=== PATIENT | female | born 1990 | race Caucasian/White ===

== ENCOUNTER 2019-05-30 11:36 | Outpatient (CLI) | payer BC ==
[2019-05-30] VITALS (23 sets, daily range): BP systolic 113–149; BP diastolic 78–101
[2019-05-30] MEDS ORDERED: METO-467 PO (19:24)
== END 2019-05-30 23:59 | disposition home or self-care (01) ==
LOC: CARD DIAG 11:36
PROVIDERS: ATTEND Nurse Practitioner
DX: R00.0 Tachycardia, unspecified (principal)
CPT/HCPCS: 93660

== ENCOUNTER 2019-05-30 14:11 | Emergency (ER) | payer BC ==
[~2019-05-30] VITALS: Ht 170.2 cm; Wt 63.6 kg
[2019-05-30] MEDS ORDERED: normal saline 1000ML IV soln IVB ONE (16:20)
[2019-05-30 16:32] LABS: BASOPHILS # (AUTO) 0.1 X10'3 (0-0.2); BASOPHILS % (AUTO) 1.2 % (0-1); EOSINOPHILS % (AUTO) 0.8 % (0-6); HEMATOCRIT 42.1 % (35.0-45.0); HEMOGLOBIN 14.5 g/dl (12.0-16.0); LYMPHOCYTES # (AUTO) 1.6 X10'3 (1.1-4.8); LYMPHOCYTES % (AUTO) 36.3 % (21-51); MEAN CORPUSCULAR HEMOGLOBIN 29.5 PG (27.0-31.0); MEAN CORPUSCULAR HGB CONC 34.4 g/dL (33.0-36.5); MEAN PLATELET VOLUME 7.4 FL (7.4-10.4); MONOCYTES # (AUTO) 0.4 X10'3 (0-0.9); MONOCYTES % (AUTO) 8.9 % (2-12); NEUTROPHILS # (AUTO) 2.3 X10'3 (1.8-7.7); NEUTROPHILS % (AUTO) 52.8 % (42-75); PLATELET COUNT 326 X10'3 (140-440); RED CELL DISTRIBUTION WIDTH 14.4 % (11.5-14.5); WHITE BLOOD COUNT 4.3 X10'3 (4.5-11.0)
[2019-05-30 16:38] LABS: D-DIMER < 0.19 MG/L FEU (0-0.50)
[2019-05-30 16:42] LABS: ALBUMIN 4.6 G/DL (3.4-5.0); ALBUMIN/GLOBULIN RATIO 1.3 (1.1-1.5); ALKALINE PHOSPHATASE 51 IU/L (46-116); ANION GAP 12 (8-16); ASPARTATE AMINO TRANSFERASE 19 U/L (10-37); BILIRUBIN,TOTAL 0.3 MG/DL (0.1-1.0); BLOOD UREA NITROGEN 9 MG/DL (7-18); BUN/CREATININE RATIO 9.8 (6.6-38.0); CALCIUM 9.7 MG/DL (8.5-10.1); CHLORIDE 103 MMOL/L (99-107); CREATININE 0.92 MG/DL (0.40-0.90); GLUCOSE 118 MG/DL (70-104); POTASSIUM 3.2 MMOL/L (3.5-5.1); SODIUM 140 MMOL/L (135-145); TOTAL CARBON DIOXIDE 24.7 MMOL/L (24-32); TOTAL PROTEIN 8.2 G/DL (6.4-8.2); eGFR 74 ML/MIN
--- NOTE | 2019-05-30 17:06 | NUR ---
pt just ambulated to the bathroom, back in bed and on monitor
[2019-05-30 17:10] LABS: ALANINE AMINOTRANSFERASE 23 U/L (12-78)
[2019-05-30 17:39] LABS: URINE HCG NEGATIVE (NEG)
[2019-05-30 17:58] LABS: URINE AMPHETAMINE SCREEN POSITIVE (Neg); URINE BARBITUATE SCREEN NEGATIVE (Neg); URINE BENZODIAZEPINES SCREEN NEGATIVE (Neg); URINE CANNABINOID SCREEN NEGATIVE (Neg); URINE COCAINE SCREEN NEGATIVE (Neg); URINE METHADONE SCREEN NEGATIVE (Neg); URINE OPIATE SCREEN NEGATIVE (Neg); URINE PHENCYCLIDINE SCREEN NEGATIVE (Neg)
[2019-05-30] MEDS ORDERED: METO-467 PO (19:24)
[2019-05-30 19:32] VITALS: BP 123/84
== END 2019-05-30 19:35 | disposition home or self-care (01) ==
LOC: ER 14:12
DX: I49.8 Other specified cardiac arrhythmias (principal); R00.2 Palpitations; R42 Dizziness and giddiness
CPT/HCPCS: 36415; 80053; 80305; 81025; 84443; 84484; 85025; 85379; 93005; 99284; J7030